=== PATIENT | female | born 1985 | race Caucasian/White ===

== ENCOUNTER 2018-10-03 12:52 | Emergency (ER) | END 2018-10-03 15:22 | disposition home or self-care (01) ==

== ENCOUNTER 2018-12-06 15:52 | Emergency (ER) | payer MEDICAID ==
[~2018-12-06] VITALS: Ht 162.6 cm; Wt 76.0 kg
[~2018-12-06 15:52] MED LIST: LOPE2CAP PO; ONDA4TAB14 PO
[2018-12-06 16:06] VITALS: BP 123/59; PULSE 96; RESP 16; Ht 162.6 cm; Wt 76.0 kg
[2018-12-06] MEDS ORDERED: ACET325T33 PO (17:42)
--- NOTE | 2018-12-06 18:29 | ERD ---
ER Documentation Chief Complaint Chief Complaint 10 weeks preg with vaginal bleeding today HPI 32-year-old female complaining of vaginal bleeding. Patient has some acute blood clots in the past. Denies any pelvic pain. A0. LNMP August 20. [facility]. Patient has an appointment next week and has not had an ultrasound. Denies medical problems. NKDA. Surgical history: Csection. Social history denies. ROS All systems reviewed and are negative except as per history of present illness. Medications Home Meds Active Scripts Acetaminophen* (Tylenol*) 325 Mg Tablet, 2 TAB PO Q8 PRN for PAIN AND OR ELEVATED TEMP, #20 TAB Prov:LITA ESPARZA PA-C 12/06/18 Ondansetron (Ondansetron Odt) 4 Mg Tab.rapdis, 4 MG PO Q6H PRN for NAUSEA AND/OR VOMITING, #10 TAB Prov:DIONTE BENITES PA-C 10/03/18 Loperamide Hcl* (Imodium*) 2 Mg Capsule, 2 MG PO .AFTER EA LOOSE BM PRN for DIARRHEA, #10 TAB Prov:DIONTE BENITES PA-C 10/03/18 Allergies Allergies: Coded Allergies: No Known Allergy (Unverified , 10/03/18) PMhx/Soc Medical and Surgical Hx: pt denies Medical Hx History of Surgery: Yes (c section ) Anesthesia Reaction: No Hx Neurological Disorder: No Hx Respiratory Disorders: No Hx Cardiac Disorders: No Hx Psychiatric Problems: No Hx Miscellaneous Medical Probl: No Hx Alcohol Use: No Hx Substance Use: No Hx Tobacco Use: No Physical Exam Vitals Vital Signs Date Temp Pulse Resp B/P (MAP) Pulse Ox O2 O2 Flow FiO2 Time Delivery Rate 12/06/18 97.5 96 16 123/59 100 16:06 (80) Physical Exam Const: No acute distress Head: Atraumatic Eyes: Normal Conjunctiva ENT: Normal External Ears, Nose and Mouth. Neck: Full range of motion. No meningismus. Resp: Clear to auscultation bilaterally Cardio: Regular rate and rhythm, no murmurs Abd: Soft, non tender, non distended. Normal bowel sounds Skin: No petechiae or rashes Back: No midline or flank tenderness Ext: No cyanosis, or edema Neur: Awake and alert Psych: Normal Mood and Affect Result Diagram: 1/22/19 1634 Results 24 hrs Laboratory Tests Test 12/06/18 16:34 White Blood Count 8.5 10^3/ul Red Blood Count 4.43 10^6/ul Hemoglobin 12.8 g/dl Hematocrit 38.4 % Mean Corpuscular Volume 86.7 fl Mean Corpuscular Hemoglobin 28.9 pg Mean Corpuscular Hemoglobin Concent 33.3 g/dl Red Cell Distribution Width 12.6 % Platelet Count 246 10^3/UL Mean Platelet Volume 11.3 fl Immature Granulocytes % 0.200 % Neutrophils % 70.1 % Lymphocytes % 22.2 % Monocytes % 5.9 % Eosinophils % 1.1 % Basophils % 0.5 % Nucleated Red Blood Cells % 0.0 /100WBC Immature Granulocytes # 0.020 10^3/ul Neutrophils # 6.0 10^3/ul Lymphocytes # 1.9 10^3/ul Monocytes # 0.5 10^3/ul Eosinophils # 0.1 10^3/ul Basophils # 0.0 10^3/ul Nucleated Red Blood Cells # 0.0 10^3/ul Urine Color YELLOW Urine Clarity SLIGHTLY CLOUDY Urine pH 5.0 Urine Specific Pep 1.027 Urine Ketones 1+ mg/dL Urine Nitrite NEGATIVE mg/dL Urine Bilirubin NEGATIVE mg/dL Urine Urobilinogen NEGATIVE mg/dL Urine Leukocyte Esterase NEGATIVE Mak/ul Urine Microscopic RBC 53 /HPF Urine Microscopic WBC 12 /HPF Urine Squamous Epithelial Cells MODERATE /HPF Urine Bacteria FEW /HPF Urine Mucus FEW /HPF Urine Hemoglobin 3+ mg/dL Urine Glucose NEGATIVE mg/dL Urine Total Protein 1+ mg/dl Beta HCG, Quantitative 3427.3 mIU/ml Procedures/[facility] DIAGNOSTIC IMAGING REPORT Patient: CHARLENE STERLING : 1985 Age: 32 Sex: F [id number] DOS: 12/06/18 1622 Ordering MD: MANOJ ESPARZA PA-C Location: [facility] Room/Bed: PROCEDURE: Obstetrical ultrasound . CLINICAL INDICATION: Vaginal bleeding TECHNIQUE: Multiple sonographic images of the pelvis were obtained utilizing a transabdominal and endovaginal technique. The images were reviewed on a PACS workstation. COMPARISON: None. FINDINGS: There is a single intrauterine present with the crown-rump length measuring 3.4 cm which corresponds to a calculated gestational age of 8 weeks and 4 days. No heart tones are identified. The ovaries are not visualized.. No significant free fluid is present within the pelvis. No abnormal adnexal masses are present. RPTAT: AA IMPRESSION: Single intrauterine at 8 weeks and 4 days. NO HEART TONES NOTED, CONSISTENT WITH DEMISE. MDM: 32-year-old female presenting with vaginal bleeding. Patient is hemodynamically stable. Patient's urine is negative. Patient has findings consistent with demise. Patient is discharged stricter precautions and told to follow-up with primary care. Patient is told symptoms change or worsen to return immediately to the ER. All questions answered at discharge Departure Diagnosis: Primary Impression: Miscarriage Additional Impression: Vaginal bleeding Condition: Stable Patient Instructions: Miscarriage (Incomplete) Referrals: [facility] YOU HAVE RECEIVED A MEDICAL SCREENING EXAM AND THE RESULTS INDICATE THAT YOU DO NOT HAVE A CONDITION THAT REQUIRES URGENT TREATMENT IN THE EMERGENCY DEPARTMENT. FURTHER EVALUATION AND TREATMENT OF YOUR CONDITION CAN WAIT UNTIL YOU ARE SEEN IN YOUR DOCTORS OFFICE WITHIN THE NEXT 1-2 DAYS. IT IS YOUR RESPONSIBILITY TO MAKE AN APPOINTMENT FOR FOLOW-UP CARE. IF YOU HAVE A PRIMARY DOCTOR --you should call your primary doctor and schedule an appointment IF YOU DO NOT HAVE A PRIMARY DOCTOR YOU CAN CALL OUR PHYSICIAN REFERRAL HOTLINE AT IF YOU CAN NOT AFFORD TO SEE A PHYSICIAN YOU CAN CHOSE FROM THE FOLLOWING [facility] [address] [facility]. [facility] [address] [facility] [facility] [address] [facility] [facility] [address] [facility]. [facility] [address] [facility] [facility]. [address] Additional Instructions: FOLLOW UP WITH YOUR PRIMARY CARE PHYSICIAN TOMORROW.Return to this facility if you are not improving as expected. LITA ESPARZA PA-C Dec 06, 2018 18:29
== END 2018-12-06 17:50 | disposition home or self-care (01) ==
LOC: FTE 15:52
DX: O03.9 Complete or unspecified spontaneous abortion without complication (principal)
CPT/HCPCS: 36415; 76801; 81001; 84702; 85025; 86900; 86901; Z7502

== ENCOUNTER 2018-12-08 07:20 | Emergency (ER) | payer MEDICAID ==
[~2018-12-08] VITALS: Ht 160 cm; Wt 72.0 kg
[~2018-12-08 07:20] MED LIST changes: +ACET325T33 PO
[2018-12-08 07:24] VITALS: BP 117/76; PULSE 66; RESP 18; Ht 160 cm; Wt 72.0 kg
--- NOTE | 2018-12-08 09:58 | ERD ---
ER Documentation Chief Complaint Chief Complaint VAG BLEED X 3 DAYS WITH PELVIC PAIN , 10 WEEKS PREG HPI 33-year-old female presents with vaginal bleeding. Patient states she had some bleeding for 3 days but woke up this morning with very sharp bleeding and passed a large clot. Patient denies any other medical problems. Patient has generalized lower pelvic pain. Denies medical problems. NKDA. Surgical history denies. Social history denies ROS All systems reviewed and are negative except as per history of present illness. Medications Home Meds Active Scripts Acetaminophen* (Tylenol*) 325 Mg Tablet, 2 TAB PO Q8 PRN for PAIN AND OR ELEVATED TEMP, #20 TAB Prov:LITA ESPARZA PA-C 12/06/18 Ondansetron (Ondansetron Odt) 4 Mg Tab.rapdis, 4 MG PO Q6H PRN for NAUSEA AND/OR VOMITING, #10 TAB Prov:DIONTE BENITES PA-C 10/03/18 Loperamide Hcl* (Imodium*) 2 Mg Capsule, 2 MG PO .AFTER EA LOOSE BM PRN for DIARRHEA, #10 TAB Prov:DIONTE BENITES PA-C 10/03/18 Allergies Allergies: Coded Allergies: No Known Allergy (Unverified , 10/03/18) PMhx/Soc Medical and Surgical Hx: pt denies Medical Hx History of Surgery: Yes (c section ) Anesthesia Reaction: No Hx Neurological Disorder: No Hx Respiratory Disorders: No Hx Cardiac Disorders: No Hx Psychiatric Problems: No Hx Miscellaneous Medical Probl: No Hx Alcohol Use: No Hx Substance Use: No Hx Tobacco Use: No Smoking Status: Never smoker FmHx Family History: No diabetes, No coronary disease, No other Physical Exam Vitals Vital Signs Date Temp Pulse Resp B/P (MAP) Pulse Ox O2 O2 Flow FiO2 Time Delivery Rate 12/08/18 98.0 66 18 117/76 99 07:24 (90) Physical Exam GENERAL: The patient is well-appearing, well-nourished, in no acute distress HEENT: Atraumatic. Conjunctivae are pink. Pupils equal, round, and reactive to light. There is no scleral icterus. Tympanic membranes clear bilaterally. Oropharynx clear CHEST: Clear to auscultation bilaterally. There are no rales, wheezes or rhonchi. HEART: Regular rate and rhythm. No murmurs, clicks, rubs or gallops. No S3 or S4. ABDOMEN: normal active bowel sounds. No distention. Tender palpation diffusely over the lower pelvic region with no rebound tenderness. Result Diagram: 12/08/18 0755 Results 24 hrs Laboratory Tests Test 12/08/18 07:55 12/08/18 08:06 White Blood Count 8.6 10^3/ul Red Blood Count 4.37 10^6/ul Hemoglobin 13.0 g/dl Hematocrit 37.9 % Mean Corpuscular Volume 86.7 fl Mean Corpuscular Hemoglobin 29.7 pg Mean Corpuscular Hemoglobin Concent 34.3 g/dl Red Cell Distribution Width 12.5 % Platelet Count 231 10^3/UL Mean Platelet Volume 11.3 fl Immature Granulocytes % 0.200 % Neutrophils % 73.3 % Lymphocytes % 18.8 % Monocytes % 5.9 % Eosinophils % 1.5 % Basophils % 0.3 % Nucleated Red Blood Cells % 0.0 /100WBC Immature Granulocytes # 0.020 10^3/ul Neutrophils # 6.3 10^3/ul Lymphocytes # 1.6 10^3/ul Monocytes # 0.5 10^3/ul Eosinophils # 0.1 10^3/ul Basophils # 0.0 10^3/ul Nucleated Red Blood Cells # 0.0 10^3/ul Beta HCG, Quantitative 1679.6 mIU/ml Urine Color RED Urine Clarity CLOUDY Urine pH 6.0 Urine Specific [place] 1.019 Urine Ketones NEGATIVE mg/dL Urine Nitrite NEGATIVE mg/dL Urine Bilirubin NEGATIVE mg/dL Urine Urobilinogen NEGATIVE mg/dL Urine Leukocyte Esterase NEGATIVE Mak/ul Urine Microscopic RBC > 182 /HPF Urine Microscopic WBC 0 /HPF Urine Squamous Epithelial Cells FEW /HPF Urine Mucus FEW /HPF Urine Hemoglobin 3+ mg/dL Urine Glucose NEGATIVE mg/dL Urine Total Protein 2+ mg/dl Procedures/[facility] DIAGNOSTIC IMAGING REPORT Patient: CHARLENE STERLING : 1985 Age: 33 Sex: F MR #: [id number] DOS: 12/08/18 0738 Ordering MD: MANOJ ESPARZA PA-C Location: [facility] Room/Bed: PROCEDURE: US OB. CLINICAL INDICATION: First trimester hemorrhage. Threatened . TECHNIQUE: Transabdominal and transvaginal views of the pelvis are available for review. COMPARISON: Obstetric ultrasound December 06 FINDINGS: The uterus is anteverted. It measures 8.2 x 4.0-5.6 cm. Uterus is of normal contour and echogenicity. Endometrial stripe complex measures 16 mm. There has been interval evacuation of previously noted intrauterine gestation. No fluid is seen within the canal.. Ovaries are not visualized. There is no free fluid in the pelvis. No solid pelvic mass is present. IMPRESSION: Status post spontaneous . MDM: 33-year-old female presenting with pelvic pain. Patient has miscarriage has passed the fetus. Since hemoglobin is stable no signs of urinary infection. Patient does not require RhoGam. Patient is discharged stricter precautions and told to follow-up with primary care within 1-2 days for close evaluation. Patient is told if symptoms change or worsen to return immediately to the ER. All questions answered at discharge Departure Diagnosis: Primary Impression: Miscarriage Condition: Stable Patient Instructions: Miscarriage Referrals: [facility] YOU HAVE RECEIVED A MEDICAL SCREENING EXAM AND THE RESULTS INDICATE THAT YOU DO NOT HAVE A CONDITION THAT REQUIRES URGENT TREATMENT IN THE EMERGENCY DEPARTMENT. FURTHER EVALUATION AND TREATMENT OF YOUR CONDITION CAN WAIT UNTIL YOU ARE SEEN IN YOUR DOCTORS OFFICE WITHIN THE NEXT 1-2 DAYS. IT IS YOUR RESPONSIBILITY TO MAKE AN APPOINTMENT FOR FOLOW-UP CARE. IF YOU HAVE A PRIMARY DOCTOR --you should call your primary doctor and schedule an appointment IF YOU DO NOT HAVE A PRIMARY DOCTOR YOU CAN CALL OUR PHYSICIAN REFERRAL HOTLINE AT IF YOU CAN NOT AFFORD TO SEE A PHYSICIAN YOU CAN CHOSE FROM THE FOLLOWING [facility] [address] [facility]. [facility] [address] [facility] [address] [facility] [address] [facility] [address] [facility]. [facility]. [address] Additional Instructions: FOLLOW UP WITH YOUR PRIMARY CARE PHYSICIAN TOMORROW.Return to this facility if you are not improving as expected. LITA ESPARZA PA-C Dec 08, 2018 09:58
== END 2018-12-08 09:31 | disposition home or self-care (01) ==
LOC: FTE 07:20
DX: O03.9 Complete or unspecified spontaneous abortion without complication (principal); R10.2 Pelvic and perineal pain
CPT/HCPCS: 36415; 76801; 81001; 84702; 85025; Z7502